=== PATIENT | male | born 1985 | race Caucasian/White ===

== ENCOUNTER 2017-11-14 14:49 | Inpatient (IN) | payer OTHER ==
[~2017-11-14] VITALS: Ht 170.2 cm; Wt 74.8 kg
--- NOTE | 2017-11-14 14:49 | NUR ---
BIBRA 76 C/O SEIZURE WITNESSED BY FAMILY, LR=[id number]. NO HX, PT STATES LAST ALCOHOL USE THIS AM. NAD NOTED. PENDING MD FAGAN.
[2017-11-14 15:26] LABS: BASOPHILS # (AUTO) 0.1 /CMM (0.0-0.2); BASOPHILS % (AUTO) 1.7 % (0.0-2.0); EOSINOPHILS % (AUTO) 0.3 % (0.0-6.0); HEMATOCRIT 46 % (39-51); LYMPHOCYTES # (AUTO) 0.6 /CMM (0.8-4.8); LYMPHOCYTES % (AUTO) 9.3 % (20.0-44.0); MEAN CORPUSCULAR HGB CONC 35 g/dl (31.0-36.0); MEAN CORPUSCULAR VOLUME 100 fL (80-96); MONOCYTES # (AUTO) 0.4 /CMM (0.1-1.30); MONOCYTES % (AUTO) 6.2 % (2.0-12.0); NEUTROPHILS # (AUTO) 5.7 /CMM (1.8-8.9); NEUTROPHILS % (AUTO) 82.5 % (43.0-81.0); PLATELET COUNT (AUTO) 117 /CMM (150-450); RDW COEFFICIENT OF VARIATION 13.6 (11.5-15.0); RED BLOOD CELL COUNT(AUTO) 4.64 MIL/uL (4.5-6.0); WHITE BLOOD COUNT (AUTO) 6.8 K/uL (4.3-11.0)
[2017-11-14] MEDS ORDERED: LORAZEPAM INJ 2 MG/ML VIAL ONE ×2 (15:27→17:04)
[2017-11-14] MEDS ORDERED: MAG HYDROX/AL HYDROX/SIMETH 30 ML UDC ONE (15:27)
[2017-11-14] MEDS ORDERED: LORAZEPAM INJ 2 MG/ML VIAL IV ONE ×2 (15:30→17:00)
[2017-11-14] MEDS ORDERED: MAG HYDROX/AL HYDROX/SIMETH 30 ML UDC PO ONE (15:30)
[2017-11-14] MEDS ORDERED: IV NS 0.9% 1,000 ML IV PRN ×2 (15:30→17:30)
[2017-11-14 15:41] LABS: ALBUMIN 3.5 g/dL (3.4-5.0); BILIRUBIN,DIRECT 0.2 mg/dL (0.0-0.2); BILIRUBIN,TOTAL 0.7 mg/dL (0.2-1.0); CALCIUM, SERUM 9.4 mg/dL (8.5-10.1); TOTAL PROTEIN, SERUM 8.3 g/dL (6.4-8.2)
[2017-11-14 15:42] LABS: POTASSIUM 2.6 mmol/L (3.5-5.1)
[2017-11-14] MEDS ORDERED: POTASSIUM CHLORIDE 20 MEQ POWDER PACKET PO ONE (16:00)
[2017-11-14] MEDS ORDERED: POTASSIUM CHLORIDE 20 MEQ POWDER PACKET ONE (16:06)
--- NOTE | 2017-11-14 17:11 | NUR ---
PAGED EPIC FOR PANEL - DR. ALBA
[2017-11-14 17:45] LABS: CALCIUM, SERUM 9.1 mg/dL (8.5-10.1); CREATININE 0.8 mg/dL (0.6-1.3); POTASSIUM 3.3 mmol/L (3.5-5.1)
[2017-11-14 18:11] VITALS: BP 143/103
--- NOTE | 2017-11-14 18:15 | NUR ---
BASHIR RN NOTE RECEIVED PATIENT FROM ER WITH DX DTS ALERT ORIENTED X3 .UNDER CARE DR ALBA , ADMISSION ORDERED GIVEN BY DR ALBA , BED IN LOWEST AND LOCKED POSITION , CALL LIGHT WITHIN REACH , HOSPITAL ORIENTATION GIVEN, VS TAKEN NO SOB NOTED .PLACED ON TELE MONITOR ST HR 114 ,WILL CONT TO MONITOR CLOSELY, PLAN OF CARE DICUSSED WITH PATIENT
[2017-11-14] MEDS ORDERED: ZOLPIDEM TARTRATE 5 MG TABLET PO PRN (18:30)
[2017-11-14] MEDS ORDERED: MAG HYDROX/AL HYDROX/SIMETH 30 ML UDC PO PRN (18:30)
[2017-11-14] MEDS ORDERED: POTASSIUM CHLORIDE 20 MEQ TAB.PRT.SR PO ONE (18:30)
[2017-11-14] MEDS ORDERED: MORPHINE SULFATE INJ 4 MG/ML DISP.SYRIN IV PRN (18:30)
[2017-11-14] MEDS ORDERED: ONDANSETRON HCL/PF 4 MG/2 ML VIAL IVP PRN (18:30)
[2017-11-14] MEDS ORDERED: Z GUARD REMEDY 2 OZ OINT TP PRN (18:30)
[2017-11-14] MEDS ORDERED: HYDROCODONE/APAP 5/325MG 1 EACH TABLET PO PRN (18:30)
[2017-11-14] MEDS ORDERED: ACETAMINOPHEN 325 MG TABLET PO PRN (18:30)
[2017-11-14] MEDS ORDERED: MAGNESIUM HYDROXIDE 30 ML UDC PO PRN (18:30)
--- NOTE | 2017-11-14 19:00 | NUR ---
BASHIR RN NOTE ENDORSED CARE WITH ABE MASON NEXT SHIFT
[2017-11-14] MEDS: IV D5/0.45 NACL 1,000 ML IV PRN (19:48)
[2017-11-14] MEDS: Thiamine 100 MG in IV D5W 50 ML IV SCH (19:48)
[2017-11-14 20:00] VITALS: BP 136/93
[2017-11-14] MEDS: ENOXAPARIN SODIUM 40 MG/0.4 ML DISP.SYRIN SQ SCH (21:39)
[2017-11-14] MEDS: LORAZEPAM INJ 2 MG/ML VIAL IV PRN (23:44)
[2017-11-15] VITALS (7 sets, daily range): BP systolic 125–165; BP diastolic 40–101
[2017-11-15] MEDS: IV D5/0.45 NACL 1,000 ML IV PRN ×2 (03:56→13:06)
[2017-11-15 06:12] LABS: BASOPHILS % (AUTO) 0.2 % (0.0-2.0); EOSINOPHILS % (AUTO) 0.7 % (0.0-6.0); HEMATOCRIT 42 % (39-51); HEMOGLOBIN 14.4 g/dL (13.5-17.5); LYMPHOCYTES # (AUTO) 0.9 /CMM (0.8-4.8); MEAN CORPUSCULAR HGB CONC 34 g/dl (31.0-36.0); MEAN CORPUSCULAR VOLUME 102 fL (80-96); MONOCYTES # (AUTO) 0.4 /CMM (0.1-1.30); NEUTROPHILS # (AUTO) 7.5 /CMM (1.8-8.9); NEUTROPHILS % (AUTO) 84.1 % (43.0-81.0); PLATELET COUNT (AUTO) 114 /CMM (150-450); RDW COEFFICIENT OF VARIATION 14.4 (11.5-15.0); RED BLOOD CELL COUNT(AUTO) 4.13 MIL/uL (4.5-6.0); WHITE BLOOD COUNT (AUTO) 8.9 K/uL (4.3-11.0)
[2017-11-15 06:26] LABS: CALCIUM, SERUM 8.3 mg/dL (8.5-10.1); CREATININE 0.9 mg/dL (0.6-1.3); MAGNESIUM 2.1 mg/dL (1.8-2.4); PHOSPHORUS 1.9 mg/dL (2.5-4.9); POTASSIUM 3.2 mmol/L (3.5-5.1)
[2017-11-15 06:37] LABS: THYROID STIMULATING HORMONE 1.733 uIU/mL (0.358-3.74)
--- NOTE | 2017-11-15 07:16 | NUR ---
BASHIR RN NOTE PT REMAINED STABLE DURING SHIFT. ALL NEEDS ATTENDED TO. CALL LIGHT WITHIN REACH. ASSISTED SAFELY TO THE RESTROOM. NO SEIZURES NOTED. ALL SAFETY MEASURES IN PLACE. WILL ENDORSE TO NEXT SHIFT FOR CONTINUITY OF CARE.
--- NOTE | 2017-11-15 08:00 | NUR ---
TELE1/RN AM SHIFT INITIAL NOTES RECEIVED PT AWAKE IN BED, PT A/O X 3, NO ACUTE CHANGE OF CONDITION, DENIES SYMPTOMS AT THIS TIME. ON ROOM AIR SATURATING @ 97%, LUNG SOUNDS CLEAR. ON TELE WITH SINUS RHYTHM, HR 96. WITH ON GOING IV INFUSION OF D5, 1/2NS @ 150CC/HR, IV SITE PATENT WITH NO S/S OF INFECTION. PT IS COMFORTABLE. SCHEDULED AM MEDS TO BE GIVEN. CL WITHIN REACHED AND SAFETY MAINTAINED. ON GOING MONITORING.
[2017-11-15] MEDS: FOLIC ACID 1 MG TABLET PO SCH (08:37)
[2017-11-15] MEDS ORDERED: POTASSIUM CHLORIDE 20 MEQ TAB.PRT.SR PO SCH (11:45)
--- NOTE | 2017-11-15 11:48 | NUR ---
WOUND CARE CONSULT: PT PRESENTS AMBULATORY AND CONTINENT WITH DRY SCRATCHES ON LEFT LOWER LEG, NO DRAINAGE. WILL SEE PRN. CURRENT ELY SCORE IS 19.
[2017-11-15] MEDS ORDERED: K PHOS NEUTRAL 250 MG TABLET PO ONE (12:00)
--- NOTE | 2017-11-15 12:17 | NUR ---
Social service consult requested by Dr. Lopez for alcohol abuse. Pt. is a 32 year old male who was admitted to [facility] for Alcohol withdrawal and delirium. SW met with pt. and his mother bedside. Pt. resides in [place] with his mother and was visiting [facility]. Pt. is an alcoholic and drinks approximately a 1 to 2 pints per day of vodka daily. Pt. has been drinking alcohol for the past 15 years. Pt. was in detox a couple of months ago and also attended and completed a 90 day program at a alcohol rehabilitation program in [facility]. Pt. goes to AA meetings sporadically and doesn't have a sponsor. SW encouraged pt. 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 Pt. and mom both stated they have referrals for various alcohol programs in the [place] area. No other social service needs are requested at this time. SW is available, if needed.
--- NOTE | 2017-11-15 13:00 | NUR ---
TD/RN ROUNDS - DR. ALBA UPDATED PT'S CONDITION. PT SEEN & EXAMINED BY DR. ALBA. PT'S MOTHER AT SPOKE TO DR. ALBA. WITH VERBAL ORDERS RECEIVED FOR ACCOMPANIED SMOKING PRIVILEGE, NICOTINE PATCH AND REDUCED IVF TO 75CC/HR. ORDERS NOTED AND CARRIED. ON GOING MONITORING.
[2017-11-15] MEDS: NICOTINE PATCH (21MG) 21 MG PATCH.TD24 TD SCH (13:06)
[2017-11-15] MEDS ORDERED: LIDOCAINE VISCOUS 2% UD 15 ML UDC MM PRN (16:00)
[2017-11-15] MEDS: Thiamine 100 MG in IV D5W 50 ML IV SCH (18:06)
--- NOTE | 2017-11-15 19:42 | NUR ---
TD/RN AM SHIFT END NOTES NO ACUTE CHANGE OF CONDITION NOTED DURING THE SHIFT. ALL NEEDS MET. PT ENDORSED TO PM NURSE TO CONTINUE CARE. CL WITHIN REACHED AND SAFETY MAINTAINED.
--- NOTE | 2017-11-15 19:55 | NUR ---
BASHIR RN OPENING NOTES RECEIVED REPORT FROM MITESH MASON. PATIENT A/A/O X3, ABLE TO MAKE NEEDS KNOWN. BREATHING EVEN & UNLABORED, TOLERATING ROOM AIR. ON TELE W/ SINUS TACH, HR 110S. DENIES ANY RESPIRATORY OR CARDIAC DISTRESS. LEFT AC IV #16 INTACT & PATENT W/ DRESSING CDI & IVF D5 1/2 NS INFUSING WELL @ 75 ML/HR. PATIENT ABLE TO AMBULATE W/ STEADY GAIT & W/ SMOKING PRIVILEGES. CALL LIGHT WITHIN REACH AND INSTRUCTED TO CALL FOR ASSISTANCE. WILL CONTINUE TO MONITOR.
[2017-11-15] MEDS: ENOXAPARIN SODIUM 40 MG/0.4 ML DISP.SYRIN SQ SCH (21:42)
[2017-11-15] MEDS: LORAZEPAM INJ 2 MG/ML VIAL IV PRN (23:38)
[2017-11-16] VITALS: BP 149/92
[2017-11-16 04:00] VITALS: BP 154/91
[2017-11-16 06:49] LABS: CALCIUM, SERUM 8.6 mg/dL (8.5-10.1); CREATININE 0.8 mg/dL (0.6-1.3); POTASSIUM 3.2 mmol/L (3.5-5.1)
[2017-11-16 06:53] LABS: ALBUMIN 2.8 g/dL (3.4-5.0); BILIRUBIN,DIRECT 0.1 mg/dL (0.0-0.2); BILIRUBIN,TOTAL 0.4 mg/dL (0.2-1.0); MAGNESIUM 1.8 mg/dL (1.8-2.4)
--- NOTE | 2017-11-16 07:10 | NUR ---
RN INITIAL NOTES: REC'D PT NOT IN THE ROOM, PER RN PT IS SMOKING OUTSIDE ACCOMPANIED BY STONE MASON. 0800h PT CAME BACK, A/O X 4, NOT IN ANY DISTRESS. PT ON ROOM AIR, NO SOB. ON TELEMONITOR, ST 117 BPM. HAS L AC G16, C/D/I, NO S/SX OF INFECTION/INFILTRATION NOTED. PROVIDED COMFORT & SAFETY MEASURES. BED KEPT LOW & IN LOCKED POS. CALL LIGHT PLACED W/IN REACH. WILL CONTINUE TO MONITOR & ATTEN PT NEEDS. FOR POSSIBLE DC PER REPORT.
[2017-11-16 08:00] VITALS: BP_SYST 130; BP_SYST 149; BP_DIAS 104; BP_DIAS 44; BP_DIAS 94
[2017-11-16] MEDS: FOLIC ACID 1 MG TABLET PO SCH (08:51)
[2017-11-16] MEDS: NICOTINE PATCH (21MG) 21 MG PATCH.TD24 TD SCH (08:52)
[2017-11-16] MEDS: POTASSIUM CHLORIDE 20 MEQ TAB.PRT.SR PO SCH ×2 (10:23→11:29)
[2017-11-16] MEDS: IV D5/0.45 NACL 1,000 ML IV PRN (10:27)
--- NOTE | 2017-11-16 10:35 | NUR ---
MS RN NOTE RECEIVED PATIENT FROM MARLON MARTINEZ , ORIENTED X3 , ON RA, NO SOB NOTED AT THIS TIME, LT AC HEP LOCK INTACT ,ON IVF ORDERED,BED IN LOWEST AND LOCKED POSITION , CALL LIGHT WITHIN [facility] ,PLAN OF CARE DISCUSSED WITH PATIENT
--- NOTE | 2017-11-16 11:34 | NUR ---
MS RN NOTE PER DR POLA COSBY TO DISCHARGE HOME ,ORDER CARRIED OUT
--- NOTE | 2017-11-16 12:11 | NUR ---
MS RN NOTE PER SUPPLY CHAIN TECH NOTES EFREN PATIENT HAD REHABILITATION PROGRAM IN [facility], AND RECOMMENDED TO CONT THIS PROGRAM AND EMPLANED TO PATIENT TO CONT ATTENDED , FOLLOW UP WITH PRIMARY CARE DOCTOR AND RETURN FOR WORSENING SYMPTOMS
--- NOTE | 2017-11-16 14:20 | NUR ---
MS RN NOTE DISCHARGE INSTRUCTION GIVEN, UNDERSTOOD, HL REMOVED , NO S\S INFECTION NOTED , INSTRUCTED TO FOLLOW UP[ WITH PRIMARY CARE DOCTOR AND REHABILITATION PROGRAM . ALSO BELONGING SIGNED , AWAITING FOR MOTHER T BUS ASSISTANT PATIENT
--- NOTE | 2017-11-16 14:27 | NUR ---
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 DISCHARGE INSTRUCTION GIVEN. TAKEN TO LOBBY WITH STUFF BY WALKING, WENT HOME WITH STABLE CONDITION
[2017-11-16] MEDS ORDERED: THIAMINE HCL 100 MG TABLET PO SCH (18:00)
== END 2017-11-16 14:28 | disposition home or self-care (01) | DRG 775 ==
LOC: ER 14:50 → TELE-TD 18:03 → MEDSG1 11-16 09:44
PROVIDERS: ADMIT Internal Medicine; ATTEND Internal Medicine
DX: F10.239 Alcohol dependence with withdrawal, unspecified (principal); K85.90 Acute pancreatitis without necrosis or infection, unspecified; E44.0 Moderate protein-calorie malnutrition; K70.10 Alcoholic hepatitis without ascites; R56.9 Unspecified convulsions; T51.0X1A Toxic effect of ethanol, accidental (unintentional), initial encounter; Y90.0 Blood alcohol level of less than 20 mg/100 ml; E87.1 Hypo-osmolality and hyponatremia; K21.9 Gastro-esophageal reflux disease without esophagitis; F17.210 Nicotine dependence, cigarettes, uncomplicated; E87.6 Hypokalemia; Z91.14 Patient's other noncompliance with medication regimen; R74.0 Nonspecific elevation of levels of transaminase and lactic acid dehydrogenase [LDH]; J44.0 Chronic obstructive pulmonary disease with (acute) lower respiratory infection; E61.1 Iron deficiency; Z71.6 Tobacco abuse counseling; Z68.25 Body mass index [BMI] 25.0-25.9, adult
CPT/HCPCS: 36415; 70450-TC; 80048-TC; 80076-TC; 82746; 83540-TC; 83690-TC; 83735-TC; 84100-TC; 84443-TC; 85025-TC; 87081-TC; A4606; G0480; J1650; J2060; J3411; J3490; J7030; J7060; Z7610